=== PATIENT | male | born 1965 | race Caucasian/White ===

== ENCOUNTER 2022-01-09 03:35 | Emergency (ER) | payer OTHER ==
[~2022-01-09] VITALS: Ht 175.3 cm; Wt 65.8 kg
[2022-01-09 04:22] VITALS: BP 124/84
--- NOTE | 2022-01-09 04:29 | NUR ---
Patient discharged to home in stable condition. Written and verbal after care instructions given. Patient verbalizes understanding of instruction.
== END 2022-01-09 04:30 | disposition home or self-care (01) ==
LOC: ER 03:44
DX: J00 Acute nasopharyngitis [common cold] (principal); Z59.00 Homelessness unspecified

== ENCOUNTER 2022-01-09 22:54 | Emergency (ER) | payer OTHER ==
[~2022-01-09] VITALS: Ht 167.6 cm; Wt 74.8 kg
[2022-01-09 23:19] VITALS: BP 145/84
[2022-01-09] MEDS ORDERED: IBUPROFEN 400 MG TABLET ONE (23:27)
[2022-01-09] MEDS ORDERED: IBUPROFEN 400 MG TABLET PO ONE (23:30)
--- NOTE | 2022-01-09 23:30 | NUR ---
Patient discharged to home in stable condition. Written and verbal after care instructions given. Patient verbalizes understanding of instruction. Provided patient with water, offered food and a blanket but patient refused. patient states he is not suicidal or homicidal. patient states he will walk back to [facility].
== END 2022-01-09 23:34 | disposition home or self-care (01) ==
LOC: ER 22:57
DX: R52 Pain, unspecified (principal); Z59.00 Homelessness unspecified; Z60.2 Problems related to living alone

== ENCOUNTER 2023-01-20 04:52 | Emergency (ER) | payer OTHER ==
[~2023-01-20] VITALS: Ht 175.3 cm; Wt 77.1 kg
[2023-01-20 05:10] VITALS: BP 150/82
--- NOTE | 2023-01-20 06:08 | NUR ---
called patient to the room. no answer. patient left without being seen by
== END 2023-01-20 06:10 | disposition left against medical advice (07) ==
LOC: ER 04:54
DX: J00 Acute nasopharyngitis [common cold] (principal); Z53.21 Procedure and treatment not carried out due to patient leaving prior to being seen by health care provider